=== PATIENT | male | born 1960 | race Caucasian/White ===

== ENCOUNTER → 2019-04-05 | Outpatient (CLI) | payer BC ==
[2016-07-20 14:36] VITALS: BP 179/106
[~2019-04-05] MED LIST: ZANTAC150 MG PO
[2019-04-05 09:57] LABS: BASO # 0.1 (0.02-0.10); EOS # 0.3 (0.04-0.40); EOS % 4.8 % (0.0-4.0); HEMATOCRIT 46.3 % (42.0-52.0); HEMOGLOBIN 15.7 g/dL (13.5-18.0); LYMPH# 1.5 (1.50-4.00); MEAN CELL VOLUME 94 fl (78-100); MEAN CORPUSCULAR HEMOGLOBIN 32 pg (27-31); MEAN CORPUSCULAR HGB CONC 34 g/dL (33-37); MONO # 0.7 (0.20-0.80); NEU # 3.5 (1.40-6.50); PLATELET COUNT 234 K/mm3 (130-400); RED BLOOD COUNT 4.95 M/mm3 (4.20-5.60); RED CELL DISTRIBUTION WIDTH 12.4 % (11.5-14.5)
[2019-04-05 10:02] LABS: POTASSIUM 4.8 mmol/L (3.5-5.1)
[2019-04-05 10:03] LABS: ALBUMIN 4.3 g/dL (3.5-5.0); CALCIUM 9.7 mg/dL (8.3-10.5)
[2019-04-05 10:05] LABS: TOTAL PROTEIN 7.8 g/dL (6.4-8.3)
[2019-04-05 10:07] LABS: TOTAL BILIRUBIN 1.1 mg/dL (0.2-1.2)
[2019-04-05 11:06] LABS: ERYTHROCYTE SEDIMENTATION RATE 8 mm/hr (0-20)
== END ==
LOC: LAB 09:42
PROVIDERS: Internal Medicine
DX: Z00.00 Encounter for general adult medical examination without abnormal findings (principal); Z12.11 Encounter for screening for malignant neoplasm of colon; Z12.5 Encounter for screening for malignant neoplasm of prostate; R53.83 Other fatigue

== ENCOUNTER 2019-04-11 08:54 | Emergency (ER) | payer BC ==
[2019-04-11 09:38] LABS: PROTHROMBIN TIME 10.6 SECONDS (9.0-12.0)
[2019-04-11 09:40] LABS: HEMATOCRIT 46.9 % (42.0-52.0); HEMOGLOBIN 15.9 g/dL (13.5-18.0); MEAN CELL VOLUME 93 fl (78-100); MEAN CORPUSCULAR HEMOGLOBIN 31 pg (27-31); MEAN CORPUSCULAR HGB CONC 34 g/dL (33-37); MEAN PLATELET VOLUME 9.8 fl (7.4-10.4); PLATELET COUNT 132 K/mm3 (130-400); RED BLOOD COUNT 5.06 M/mm3 (4.20-5.60); RED CELL DISTRIBUTION WIDTH 12.9 % (11.5-14.5); WHITE BLOOD COUNT 6.1 K/mm3 (4.8-10.8)
[2019-04-11 09:42] LABS: ALBUMIN 4.1 g/dL (3.5-5.0)
[2019-04-11 09:43] LABS: POTASSIUM 4.5 mmol/L (3.5-5.1)
[2019-04-11 09:44] LABS: CALCIUM 9.4 mg/dL (8.3-10.5)
[2019-04-11 09:45] LABS: TOTAL PROTEIN 7.5 g/dL (6.4-8.3)
[2019-04-11 09:47] LABS: TOTAL BILIRUBIN 1.9 mg/dL (0.2-1.2)
[2019-04-11 09:50] LABS: LYMPHOCYTE 20 % (20-51); MONOCYTE 19 % (3-10); NEUTROPHILS 61 % (42-75)
[2019-04-11 10:08] LABS: URINE APPEARANCE CLEAR; URINE BILIRUBIN NEGATIVE (NEGATIVE); URINE BLOOD TRACE (NEGATIVE); URINE COLOR YELLOW; URINE GLUCOSE NEGATIVE (NEGATIVE); URINE KETONE NEGATIVE (NEGATIVE); URINE LEUKOCYTE ESTERASE NEGATIVE (NEGATIVE); URINE MUCUS PRESENT (NOT PRESENT); URINE NITRATE NEGATIVE (NEGATIVE); URINE PROTEIN(semi-quant) TRACE mg/dL (NEGATIVE); URINE UROBILINOGEN NORMAL (NORMAL); URINE WBC 0-1 /hpf (0-3)
[2019-04-11 10:29] LABS: ERYTHROCYTE SEDIMENTATION RATE 8 mm/hr (0-20)
[2019-04-11 10:48] LABS: D-DIMER 12.79 mg/L FEU (0.15-0.50)
[2019-04-11 14:01] VITALS: BP 125/75
== END 2019-04-11 13:35 | disposition short-term general hospital (02) ==
LOC: ED 08:54
PROVIDERS: Nurse Practitioner Primary Care
DX: I26.92 Saddle embolus of pulmonary artery without acute cor pulmonale (principal); Z88.8 Allergy status to other drugs, medicaments and biological substances
CPT/HCPCS: J1650; J2270; J7030; Q9967

== ENCOUNTER → 2022-05-03 | Outpatient (CLI) | payer BC ==
[2022-05-03 08:54] LABS: BASO # 0.02 K/mm3 (0.02-0.10); EOS % 1.1 % (0.0-4.0); HEMATOCRIT 44.2 % (42.0-52.0); HEMOGLOBIN 14.6 g/dL (13.5-18.0); LYMPH# 1.99 K/mm3 (1.50-4.00); MEAN CELL VOLUME 95 fl (78-100); MEAN CORPUSCULAR HEMOGLOBIN 32 pg (27-31); MEAN CORPUSCULAR HGB CONC 33 g/dL (33-37); MONO # 1.04 K/mm3 (0.20-0.80); NEU # 6.14 K/mm3 (1.40-6.50); PLATELET COUNT 241 K/mm3 (130-400); RED BLOOD COUNT 4.64 M/mm3 (4.20-5.60); RED CELL DISTRIBUTION WIDTH 11.7 % (11.5-14.5); WHITE BLOOD COUNT 9.3 K/mm3 (4.8-10.8)
[2022-05-03 09:02] LABS: ALBUMIN 4.4 g/dL (3.4-4.8)
[2022-05-03 09:03] LABS: POTASSIUM 4.3 mmol/L (3.5-5.1)
[2022-05-03 09:04] LABS: CALCIUM 9.6 mg/dL (8.3-10.5)
[2022-05-03 09:05] LABS: TOTAL PROTEIN 7.4 g/dL (6.2-8.1)
[2022-05-03 09:07] LABS: TOTAL BILIRUBIN 1.5 mg/dL (0.2-1.2)
== END ==
LOC: LAB 08:29
PROVIDERS: Nurse Practitioner
DX: M25.522 Pain in left elbow (principal); M25.422 Effusion, left elbow